=== PATIENT | male | born 1985 | race African-American/Black ===

== ENCOUNTER 2019-03-01 13:48 | Emergency (ER) | payer SELFPAY ==
[2019-03-01] MEDS ORDERED: IBUPROFEN 800 MG TABLET PO ONE (14:14)
[2019-03-01] MEDS ORDERED: LIDOCAINE 1% INJ-PF (10 MG/ML) 30 ML SDV INJ ONE ×2 (14:15→14:41)
--- NOTE | 2019-03-01 14:16 | ER Document Report ---
ED Medical Screen (RME) - General Chief Complaint: Thumb Injury Stated Complaint: FINGER LACERATION Time Seen by Provider: 03/01/19 14:14 Mode of Arrival: Ambulatory Information source: Patient Notes: Patient was using a drywall knife and cut his left thumb while at work today. Patient with curved laceration to the ulnar aspect of left thumb. Tetanus immunization is currently up-to-date I have greeted and performed a rapid initial assessment of this patient. A comprehensive ED assessment and evaluation of the patient, analysis of test results and completion of the medical decision making process will be conducted by additional ED providers. TRAVEL OUTSIDE OF THE [place] IN LAST 30 DAYS: No - Related Data Allergies/Adverse Reactions: No Known Allergies Allergy (Verified 03/01/19 14:03) Physical Exam - Vital signs Vitals: Temp Pulse Resp BP Pulse Ox 98.0 F 60 18 130/69 H 99 03/01/19 14:11 03/01/19 14:11 03/01/19 14:11 03/01/19 14:11 03/01/19 14:11 - Skin Skin irregularity: Laceration - Left thumb laceration Course - Vital Signs Vital signs: Temp Pulse Resp BP Pulse Ox 98.0 F 60 18 130/69 H 99 03/01/19 14:11 03/01/19 14:11 03/01/19 14:11 03/01/19 14:11 03/01/19 14:11
--- NOTE | 2019-03-01 14:38 | ER Document Report ---
ED General - General Chief Complaint: Thumb Injury Stated Complaint: FINGER LACERATION Time Seen by Provider: 03/01/19 14:14 Mode of Arrival: Ambulatory TRAVEL OUTSIDE OF THE [place] IN LAST 30 DAYS: No - HPI Notes: 33-year-old male to the emergency department with complaints of a laceration to his left thumb. States he was cutting sheet rock when he accidentally cut his thumb. States that he feels like he needs stitches. He is up-to-date on his tetanus shot. States that he has no decrease in range of motion and no numbness and tingling to the finger. He is right-hand dominant. - Related Data Allergies/Adverse Reactions: No Known Allergies Allergy (Verified 03/01/19 14:03) Past Medical History - General Information source: Patient - Social History Smoking Status: Never Smoker Frequency of alcohol use: Occasional Drug Abuse: None Family History: Reviewed & Not Pertinent Review of Systems - Review of Systems Constitutional: No symptoms reported EENT: No symptoms reported Cardiovascular: No symptoms reported Respiratory: No symptoms reported Gastrointestinal: No symptoms reported Musculoskeletal: Joint pain - Left thumb pain Skin: Other Neurological/Psychological: No symptoms reported - Laceration to the left thumb -: Yes All other systems reviewed and negative Physical Exam - Vital signs Vitals: Temp Pulse Resp BP Pulse Ox 98.0 F 60 18 130/69 H 99 03/01/19 14:11 03/01/19 14:11 03/01/19 14:11 03/01/19 14:11 03/01/19 14:11 Interpretation: Normal - General General appearance: Appears well, Alert - HEENT Head: Normocephalic, Atraumatic Eyes: Normal Pupils: PERRL - Respiratory Respiratory status: No respiratory distress Chest status: Nontender Breath sounds: Normal Chest palpation: Normal - Cardiovascular Rhythm: Regular Heart sounds: Normal auscultation Murmur: No - Back Back: Normal, Nontender - Extremities Hand: Laceration - There is a semicircle flap-like laceration to the left thumb on the medial aspect. Bleeding is controlled at time of inspection. Patient has full range of motion and thumb against resistance with 5 out of 5 strength in opposition, flexion, extension, adduction, and abduction. There is no evidence of tendon laceration. He denies any numbness and tingling and has grossly intact sensation to the thumb. Cap refill is less than 2 seconds in all fingers. There is no tenderness to palpation over the palm or dorsal aspect of the left thumb and no tenderness to palpation over the left wrist. Radial pulses are intact and equal. Handgrip is 5 out of 5 bilaterally. - Neurological Neuro grossly intact: Yes Cognition: Normal Orientation: AAOx4 Additional motor exam normals: Equal bingo attendant Sensory: Normal - Psychological Associated symptoms: Normal affect, Normal mood - Skin Skin Temperature: Warm Skin Moisture: Dry Skin Color: Normal Skin irregularity: Laceration - See musculoskeletal for discussion on lacer ation. Course - Vital Signs Vital signs: Temp Pulse Resp BP Pulse Ox 98.0 F 60 18 130/69 H 99 03/01/19 14:11 03/01/19 14:11 03/01/19 14:11 03/01/19 14:11 03/01/19 14:11 - Transfer of Care Notes: 03/01/19 15:33 Impression: Left thumb laceration. Tolerated repair well. There is no evidence of tendon laceration. Sensation is WNL. Will have patient return in 7 days for suture removal. Hand was dirty initially, so will give prophylaxis keflex. UTD on tetanus. Procedures - Laceration/Wound Repair Left Medial Finger Thumb Time completed: 15:34 Wound length (cm): 3 Wound's Depth, Shape: Superficial Laceration pre-procedure: Sterile PPE donned, Sterile drapes applied, Shur-Clens applied Anesthetic type: 1% Lidocaine Volume Anesthetic (mLs): 4 Wound explored: Contaminated - patient with sheet rock dust on hands. His hands were cleansed throughly and copiously Irrigated w/ Saline (mLs): 200 Wound Debrided: Minimal Wound Repaired With: Sutures Suture Size/Type: 4:0 Number of Sutures: 6 Layer Closure?: No Post-procedure wound care: Sterile dressing applied, Splint applied Post-procedure NV exam normal: Yes Complications: No Discharge - Discharge Clinical Impression: Laceration of left thumb Condition: Stable Disposition: HOME, SELF-CARE Instructions: [facility], Laceration [facility] ([facility]) Additional Instructions: KEEP WOUND CLEAN AND DRY. WEAR SPLINT TO HELP PROTECT SUTURES. SUTURE REMOVAL IN 7 DAYS. COMPLETE ANTIBIOTICS. Prescriptions: Cephalexin Monohydrate [Keflex 500 mg Capsule] 500 mg PO QID #20 capsule Ibuprofen [Motrin 800 mg Tablet] 800 mg PO Q8H PRN #20 tab PRN Reason:
[2019-03-01 16:25] VITALS: BP 122/77
== END 2019-03-01 16:27 | disposition home or self-care (01) ==
LOC: ER 13:48
PROC: 0HQGXZZ Repair Left Hand Skin, External Approach (ICD-10-PCS; principal; 2019-03-01)
DX: S61.012A Laceration without foreign body of left thumb without damage to nail, initial encounter (principal); W45.8XXA Other foreign body or object entering through skin, initial encounter
CPT/HCPCS: 99282; 12002; J3490